=== PATIENT | male | born 1945 | race American Indian/Alaskan Native ===

== ENCOUNTER 2021-03-18 10:49 | Emergency (ER) | payer MEDICARE ==
--- NOTE | 2021-03-18 11:02 | Emergency Department Report ---
Blank Doc - Documentation Documentation: 75-year-old male that presents with blood in stool and describes it as dark-co lored and nausea. Denies any abdominal pain or vomiting. 1- This is a initial triage assessment/medical screening only. Full assessment and work-up will be completed once the patient is in proper hospital gown, ED bed and in a private room setting. This initial assessment/diagnostic orders/clinical plan/ treatment(s) is/are subject to change based on pt's health status, clinical progression and re-assessment by fellow clinical providers in the ED. Further treatment and workup at subsequent clinical providers discretion. Patient/guardians urged not to elope from ED as their condition may be serious if not clinically assessed and managed. 2-labs 3-UA The patient was evaluated in the emergency department for symptoms described in the history of present illness. He/she was evaluated in the context of the global COVID-19 pandemic, which necessitated consideration that the patient might be at risk for infection with the virus that causes COVID-19. Institutional protocols and algorithms that pertain to the evaluation of patients at risk for COVID-19 are in a state of rapid change based on information released by regulatory bodies including the CDC and federal and state organizations. These policies and algorithms were followed during the patient's care in the emergency department. Please note that these policies, procedures and recommendations changed on a rapid basis.
--- NOTE | 2021-03-18 11:27 | Emergency Department Report ---
ED GI Bleed HPI - General Chief complaint: GI Bleed Stated complaint: BLOOD IN STOOL Time Seen by Provider: 03/18/21 10:59 Source: patient Mode of arrival: Ambulatory Limitations: No Limitations - History of Present Illness Initial comments: Mr. Cooper is a 75 years old male with history of hypertension and diabetes. Patient presented to the ER complaining of lower GI bleed started 4 days ago. Patient stated that he noticed. Drops of blood before he started using the bathroom. He stated that happened approximately 3 times so far. Last 1 was yesterday. Patient denied any hematemesis, melena, hemoptysis or hematuria. Patient is not taking any blood thinner medicine. Patient stated that he has similar symptoms approximately 10 years ago and he had a colonoscopy at that time and he was told that he has hemorrhoids. MD complaint: blood on toilet paper -: days(s) (3) Quality: painless Context: history of GI bleed, hemorrhoids Associated Symptoms: denies other symptoms. denies: epistaxis, fever/chills - Related Data Home Medications Medication Instructions Recorded Confirmed Last Taken Losartan/Hydrochlorothiazide 100 mg PO DAILY 10/03/13 03/18/21 1 Day Ago [Hyzaar 100-25 Tablet] ~03/17/21 Metoprolol [Lopressor TAB] 50 mg PO BID 10/03/13 03/18/21 1 Day Ago ~03/17/21 Simvastatin 20 mg PO DAILY 03/18/21 03/18/21 1 Day Ago ~03/17/21 amLODIPine 10 mg PO DAILY 03/18/21 03/18/21 1 Day Ago ~03/17/21 metFORMIN 500 mg PO BID 03/18/21 03/18/21 1 Day Ago ~03/17/21 Allergies Allergy/AdvReac Type Severity Reaction Status Date / Time No Known Allergies Allergy Verified 03/18/21 12:06 ED Review of Systems ROS: Stated complaint: BLOOD IN STOOL Other details as noted in HPI Comment: All other systems reviewed and negative Constitutional: denies: chills, fever Respiratory: denies: cough, shortness of breath, SOB with exertion, SOB at rest Cardiovascular: denies: chest pain, palpitations Gastrointestinal: hematochezia. denies: abdominal pain, nausea, vomiting, constipation, hematemesis, melena Genitourinary: denies: hematuria Neurological: denies: headache, weakness, numbness, paresthesias, confusion, abnormal gait Psychiatric: denies: depression ED Past Medical Hx - Past Medical History Previous Medical History?: No Hx Hypertension: Yes - Surgical History Past Surgical History?: No - Social History Smoking Status: Former Smoker Substance Use Type: None - Medications Home Medications: Home Medications Medication Instructions Recorded Confirmed Last Taken Type Losartan/Hydrochlorothiazide 100 mg PO DAILY 10/03/13 03/18/21 1 Day Ago History [Hyzaar 100-25 Tablet] ~03/17/21 Metoprolol [Lopressor TAB] 50 mg PO BID 10/03/13 03/18/21 1 Day Ago History ~03/17/21 Simvastatin 20 mg PO DAILY 03/18/21 03/18/21 1 Day Ago History ~03/17/21 amLODIPine 10 mg PO DAILY 03/18/21 03/18/21 1 Day Ago History ~03/17/21 metFORMIN 500 mg PO BID 03/18/21 03/18/21 1 Day Ago History ~03/17/21 ED Physical Exam - General Limitations: No Limitations General appearance: alert, in no apparent distress - Head Head exam: Present: atraumatic, normocephalic, normal inspection - Eye Eye exam: Present: normal appearance, PERRL - ENT ENT exam: Present: normal exam, normal orophraynx, mucous membranes moist - Neck Neck exam: Present: normal inspection, full ROM. Absent: tenderness, meningismus - Respiratory Respiratory exam: Present: normal lung sounds bilaterally - Cardiovascular Cardiovascular Exam: Present: regular rate, normal rhythm, normal heart sounds - GI/Abdominal GI/Abdominal exam: Present: soft, normal bowel sounds. Absent: distended, tenderness, guarding, rebound, rigid, organomegaly, mass, bruit, pulsatile mass, hernia - Extremities Exam Extremities exam: Present: normal inspection, full ROM, normal capillary refill. Absent: tenderness, pedal edema, joint swelling, calf tenderness - Back Exam Back exam: Present: normal inspection, full ROM. Absent: CVA tenderness (R), CVA tenderness (L) - Neurological Exam Neurological exam: Present: alert, oriented X3, CN II-XII intact, normal gait, reflexes normal. Absent: motor sensory deficit - Psychiatric Psychiatric exam: Present: normal mood - Skin Skin exam: Present: warm, dry, intact, normal color ED Course Vital Signs 03/18/21 03/18/21 03/18/21 10:52 11:39 11:47 Temperature 98.2 F 97.4 F L Pulse Rate 68 52 L Respiratory 18 16 16 Rate Blood Pressure 148/72 Blood Pressure 142/72 [Right] O2 Sat by Pulse 100 100 100 Oximetry 03/18/21 03/18/21 03/18/21 12:01 12:21 12:41 Temperature Pulse Rate 49 L 50 L 50 L Respiratory 23 17 19 Rate Blood Pressure 142/72 142/72 142/72 Blood Pressure [Right] O2 Sat by Pulse 98 100 100 Oximetry 03/18/21 13:01 Temperature Pulse Rate 50 L Respiratory 19 Rate Blood Pressure 142/72 Blood Pressure [Right] O2 Sat by Pulse 99 Oximetry ED Medical Decision Making - Lab Data Result diagrams: 03/18/21 11:22 03/18/21 11:22 - Medical Decision Making Mr. Cooper is a 75 years old male with history of hypertension and diabetes. Patient presented to the ER complaining of lower GI bleed started 4 days ago. Patient stated that he noticed. Drops of blood before he started using the bathroom. He stated that happened approximately 3 times so far. Last 1 was yesterday. Patient denied any hematemesis, melena, hemoptysis or hematuria. Patient is not taking any blood thinner medicine. Patient stated that he has similar symptoms approximately 10 years ago and he had a colonoscopy at that time and he was told that he has hemorrhoids. Patient remained stable with stable vital sign. No bloody bowel movement observed in the ER. Labs reviewed and is an remarkable with a hemoglobin of 10.7. 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 Critical care attestation.: If time is entered above; I have spent that time in minutes in the direct care of this critically ill patient, excluding procedure time. ED Disposition Clinical Impression: Lower GI bleed Disposition: HOME / SELF CARE / HOMELESS Is pt being admited?: No Condition: Stable Instructions: Gastrointestinal Bleeding Referrals: PRIMARY CAREM[facility] [Primary Care Provider] - 3-5 Days [facility] [Provider Group] - 3-5 Days Forms: Accompanied Note
[2021-03-18 11:51] VITALS: BP 142/72
[2021-03-18 12:09] LABS: Basophils % (Auto) 0.5 % (0.0-1.8); Eosinophils # (Auto) 0.1 K/mm3 (0.0-0.4); Eosinophils % (Auto) 2.1 % (0.0-4.3); Hematocrit 31.5 % (35.5-45.6); Hemoglobin 10.7 gm/dl (11.8-15.2); Lymphocytes # (Auto) 1.5 K/mm3 (1.2-5.4); Lymphocytes % (Auto) 27.9 % (13.4-35.0); Mean Corpuscular HGB Conc 34 % (32-34); Mean Corpuscular Volume 88 fl (84-94); Monocytes # (Auto) 0.6 K/mm3 (0.0-0.8); Monocytes % (Auto) 11.6 % (0.0-7.3); Platelet Count 247 K/mm3 (140-440); Red Cell Distribution Width 14.8 % (13.2-15.2)
[2021-03-18 12:28] LABS: Alanine Aminotransferase 9 units/L (7-56); Albumin 4.4 g/dL (3.9-5); BUN/Creatinine Ratio 12; Blood Urea Nitrogen 15 mg/dL (9-20); Calcium 9.5 mg/dL (8.4-10.2); Hemolysis Index 2
[2021-03-18 13:36] LABS: INR 0.95 (0.87-1.13)
[2021-03-18 15:03] LABS: Bilirubin,Urine NEG (Negative); Blood,Urine NEG (Negative); Color,Urine Straw (Yellow); Mucus,Urine FEW /HPF; Protein,Urine <15 mg/dL mg/dL (Negative); Urobilinogen,Urine < 2.0 mg/dL (<2.0); WBC,Urine < 1.0 /HPF (0.0-6.0)
== END 2021-03-18 13:54 | disposition home or self-care (01) ==
LOC: ED 10:49
DX: K92.2 Gastrointestinal hemorrhage, unspecified (principal); I10 Essential (primary) hypertension; Z87.891 Personal history of nicotine dependence
CPT/HCPCS: 36415; 80053; 81001; 85025; 85610; 85730; 86850; 86900; 86901; 99283